=== PATIENT | male | born 1955 ===

== ENCOUNTER 2021-11-23 11:45 | Inpatient (IN) | payer OTHER ==
[~2021-11-23] VITALS: Ht 170.2 cm; Wt 95.3 kg
[2021-11-23] MEDS ORDERED: COUMADIN PO (15:44)
[2021-11-23] MEDS ORDERED: TOPROL XL50 M1 PO (15:44)
[2021-11-23] MEDS ORDERED: CLONAZEPAM0.5 MG PO (15:45)
[2021-11-23] MEDS ORDERED: CRESTOR10 MG PO (15:45)
[2021-11-26] MEDS ORDERED: JANTOVEN1 MG (08:26)
[2021-12-11] MEDS ORDERED: HYOSCYAMINE0.125 M1 SL (08:31)
[2021-12-11] MEDS ORDERED: ULTRACET PO (08:31)
[2021-12-13] MEDS ORDERED: LOPRESSOR25 MG PO (09:06)
== END 2021-12-13 13:06 | disposition home or self-care (01) | DRG 357 ==
LOC: O/R 11-26 08:20 → SURH 11-26 08:20
PROVIDERS: ADMIT Surgery; ATTEND Surgery
PROC: 4A12X4Z Monitoring of Cardiac Electrical Activity, External Approach (ICD-10-PCS; 2021-11-27)
PROC: 0WBH4ZZ Excision of Retroperitoneum, Percutaneous Endoscopic Approach (ICD-10-PCS; principal; 2021-11-29 10:15)
PROC: 30233N1 Transfusion of Nonautologous Red Blood Cells into Peripheral Vein, Percutaneous Approach (ICD-10-PCS; 2021-12-01)
DX: D37.5 Neoplasm of uncertain behavior of rectum (principal); I97.790 Other intraoperative cardiac functional disturbances during cardiac surgery; D62 Acute posthemorrhagic anemia; R19.07 Generalized intra-abdominal and pelvic swelling, mass and lump; I49.3 Ventricular premature depolarization; Z95.2 Presence of prosthetic heart valve; I49.9 Cardiac arrhythmia, unspecified; I10 Essential (primary) hypertension